=== PATIENT | female | born 1955 | race African-American/Black ===

== ENCOUNTER 2019-03-17 15:30 | Emergency (ER) | payer BC, MEDICAID ==
[~2019-03-17] VITALS: Ht 167.6 cm; Wt 91.0 kg
[2019-03-17 15:54] VITALS: BP 138/83
[2019-03-17] MEDS ORDERED: HYDR-3164 PO (16:41)
[2019-03-17] MEDS ORDERED: ORPH100T PO (16:41)
--- NOTE | 2019-03-17 16:42 | PHYS DOC ---
Past Medical History Past Medical History: Anxiety, Hypertension Additional Past Medical Histor: HEP C Past Surgical History: No Surgical History Additional Information: 2 CIGS/DAY Alcohol Use: Occasionally Drug Use: None Adult General Chief Complaint Chief Complaint: LOWEREXTREMITY INJURY HPI HPI Patient is a 63 year old female who presents with patient states one week ago the floor was wet and she slipped and fell in her kitchen linoleum floor. She states she now has back of thigh lower pain when she goes to stand up or flex her leg. She states she has been up and walking on it but is painful so she with movement. She currently rates her pain a 9 out of 10. She states it's more so when she is up and moving. States she's taken Aleve but is not really helping much. Review of Systems Review of Systems Musculoskeletal: Left lower hamstring pain. Denies back pain or joint pain [] All other systems were reviewed and found to be within normal limits, except as documented in this note. Allergies Allergies Allergies Coded Allergies Type Severity Reaction Last Updated Verified No Known Drug Allergies 03/26/13 No Physical Exam Physical Exam Constitutional: Well developed, well nourished, no acute distress, non-toxic appearance. [] HENT: Normocephalic, atraumatic, bilateral external ears normal, oropharynx moist, no oral exudates, nose normal. [] Eyes: PERRLA, EOMI, conjunctiva normal, no discharge. [] Neck: Normal range of motion, no tenderness, supple, no stridor. [] Cardiovascular:Heart rate regular rhythm, no murmur [] Lungs & Thorax: Bilateral breath sounds clear to auscultation [] Abdomen: Bowel sounds normal, soft, no tenderness, no masses, no pulsatile masses. [] Skin: Warm, dry, no erythema, no rash. [] Back: No tenderness, no CVA tenderness. [] Extremities: L lower hamstring tenderness, no cyanosis, no clubbing, ROM intact, no edema. [] Neurologic: Alert and oriented X 3, normal motor function, normal sensory function, no focal deficits noted. [] Psychologic: Affect normal, judgement normal, mood normal. [] Current Patient Data Vital Signs Vital Signs Date Time Temp Pulse Resp B/P (MAP) Pulse Ox O2 Delivery O2 Flow Rate FiO2 03/17/19 15:54 98.0 91 18 138/83 (101) 96 Room Air 98.0 EKG EKG [] Radiology/Procedures Radiology/Procedures [] Course & Med Decision Making Course & Med Decision Making Patient is tenderness to the patient's left lower hamstring. Pain is worsened with extending and bending the knee and when the patient goes to stand up. No swelling in the extremities. Pedal pulses felt. Skin pink warm and dry. Patient denies skin color changes or temperature changes. She denies any numbness or t ingling. She denies any weakness in the extremities. Full strength in the extremity. No laxity in her knee joint. Denies hitting her head or syncope. Denies any nausea or vomiting or visual changes. No bruising or lumps felt or seen to the area. This is likely a hamstring strain. Patient is told to continue taking the Aleve and I will add in some stronger pain medicine and muscle relaxer. I told her to also use a heating pad on it. Dragon Disclaimer Dragon Disclaimer This electronic medical record was generated, in whole or in part, using a voice recognition dictation system. Departure Departure Impression: Primary Impression: Hamstring strain Disposition: 01 HOME, SELF-CARE Condition: STABLE Referrals: JUMANA HEATON MD (PCP) Patient Instructions: Hamstring Strain, Hamstring Strain with Rehab-SportsMed Additional Instructions: Follow up with your primary care provider. Continue taking the Aleve. Use a heating pad. Scripts Orphenadrine Citrate (ORPHENADRINE CITRATE) 100 Mg Tablet.er 1 TAB PO BID, #20 TAB Prov: CARYN ANTON APRN 03/17/19 Hydrocodone/Apap 5-325 (NORCO 5-325 TABLET) 1 Each Tablet 1 TAB PO PRN Q6HRS PRN for PAIN, #8 TAB 0 Refills Prov: CARYN ANTON APRN 03/17/19 Problem Qualifiers Primary Impression: Hamstring strain Encounter type: initial encounter Laterality: left Qualified Codes: S76.312A - Strain of muscle, fascia and tendon of the posterior muscle group at thigh level, left thigh, initial encounter CARYN ANTON APRN Mar 17, 2019 16:42
== END 2019-03-17 16:48 | disposition home or self-care (01) ==
LOC: ER 15:30
DX: S76.312A Strain of muscle, fascia and tendon of the posterior muscle group at thigh level, left thigh, initial encounter (principal); F41.9 Anxiety disorder, unspecified; I10 Essential (primary) hypertension; F17.210 Nicotine dependence, cigarettes, uncomplicated; W18.39XA Other fall on same level, initial encounter; Y93.89 Activity, other specified; Y92.090 Kitchen in other non-institutional residence as the place of occurrence of the external cause; Y99.8 Other external cause status
CPT/HCPCS: 99283